=== PATIENT | female | born 1980 | race Hispanic/Latino ===

== ENCOUNTER 2016-04-17 22:23 | Emergency (ER) | payer SELFPAY ==
[~2016-04-17] VITALS: Ht 162.6 cm; Wt 90.5 kg
[~2016-04-17 22:23] MED LIST: CARAFATE100 MG/ML PO; HEARTBURN RELI150 M1 PO
[2016-04-17 23:26] LABS: HEMATOCRIT 33.5 % (36.0-46.0); MCH 27.1 PG (29.0-34.0); MCV 79.8 FL (83-99); MEAN PLAT.VOLUME 10.5 uM^3 (9.5-12.4); PLATELET COUNT 476 K/uL (156-360); RBC DIS.WIDTH-CV 13.5 % (11.8-14.6); RBC DIS.WIDTH-SD 38.2 % (39-53); WHITE BLOOD COUNT 18.9 K/uL (4.1-10.2)
[2016-04-17 23:36] LABS: CHLORIDE 105 mEq/L (99-109); SODIUM 137 mEq/L (136-147)
[2016-04-17 23:39] LABS: GLUCOSE 135 mg/dL (70-99)
[2016-04-17 23:40] LABS: ANION GAP 10 MEQ/L (2-14)
[2016-04-17 23:41] LABS: TOTAL BILIRUBIN 0.5 mg/dL (0.0-1.0)
[2016-04-17 23:42] LABS: ALKALINE PHOSPHATASE 196 IU/L (3-129); GFR ESTIMATE (CALCULATED) > 59 mL/min/
[2016-04-17 23:43] LABS: UREA NITROGEN (BUN) 9 mg/dL (9-23)
[2016-04-18 00:38] LABS: INFLUENZA A VIRAL ANTIGEN NEGATIVE; INFLUENZA B VIRAL ANTIGEN NEGATIVE
[2016-04-18 00:47] LABS: ADD MIUA? NO; BILIRUBIN NEGATIVE; BLOOD NEGATIVE; COLOR YELLOW ((YELLOW)); GLUCOSE (STRIP) NEGATIVE; KETONES NEGATIVE; LEUKOCYTES NEGATIVE; NITRITE NEGATIVE; PH, URINE 6.5 (5-8); PROTEIN (STRIP) NEGATIVE; SPECIFIC GRAVITY 1.005 (1.000-1.030); UCUL ADDED? NO; UROBILINOGEN 0.2 MG/DL (0.2-1.0)
[2016-04-18] MEDS ORDERED: ZITHROMAX500 MG PO (00:55)
[2016-04-18] MEDS ORDERED: VENTOLIN HFA18 GM IH (00:55)
[2016-04-18 01:05] VITALS: BP 120/72
== END 2016-04-18 01:06 | disposition home or self-care (01) ==
LOC: RME 22:23 → EME 22:23 → RME 04-18 01:06
PROVIDERS: Nurse Practitioner Family
DX: R50.9 Fever, unspecified (principal); R06.02 Shortness of breath
CPT/HCPCS: 71020; 80053; 81003; 85027; 87502; 94640; 99281; 99285; J1885; J7030